=== PATIENT | female | born 1990 | race Caucasian/White ===

== ENCOUNTER 2025-09-09 09:43 | Inpatient (IN) | payer OTHER, SELFPAY ==
[2025-09-06 13:31] LABS: Hematocrit 37.0 % (34.9-44.5); Hemoglobin 12.9 g/dL (12.0-15.5); Platelet Count 173 10x3/uL (150-450)
[2025-09-06 14:03] LABS: Syphilis Antibody Index 0.04 S/CO (<1.00 Non-Reactive)
[2025-09-06 14:05] LABS: Hep B Surf Ag Non-Reactive S/CO (NonReactive)
[2025-09-09] MEDS ORDERED: hydrALAZINE 20 MG/ML VIAL SLOW IVP PRN ×2 (10:50→15:17)
[2025-09-09] MEDS ORDERED: Clindamycin/D5W 900 MG in Premix 1 BAG IVPB SCH (10:50)
[2025-09-09] MEDS ORDERED: Oxytocin 30 units/NS 500 ML 500 ML IV SCH ×2 (10:50→15:17)
[2025-09-09] MEDS ORDERED: Ondansetron PF 4 MG/2 ML Vial IVP PRN ×2 (10:50→15:17)
[2025-09-09] MEDS ORDERED: Famotidine/PF 20 mg/2ml Vial SLOW IVP PRN (10:50)
[2025-09-09] MEDS ORDERED: Bicitra 30 ML UDCUP PO PRN (10:50)
[2025-09-09 10:53] VITALS: BMI 29.2
[2025-09-09] MEDS ORDERED: Gentamicin Sulfate 120 MG in Premix 1 BAG IVPB SCH (11:00)
[2025-09-09] MEDS: PHENYLEPHRINE-NS 100 MCG/ML 10 ML SYRINGE ONE (14:36)
[2025-09-09] MEDS: Oxytocin 10 UNITS/ML VIAL ONE ×2 (14:36)
[2025-09-09] MEDS ORDERED: HYDROcodone/Acetaminophen 5/325 mg Tablet PO PRN ×2 (15:17)
[2025-09-09] MEDS ORDERED: Lanolin Ointment 7 GM TUBE TOP PRN (15:17)
[2025-09-09] MEDS: Ibuprofen 800 MG TAB PO SCH (17:11)
[2025-09-09] MEDS: Ketorolac Tromethamine 30 MG (1 mL) VIAL IVP PRN (18:01)
[2025-09-10] MEDS: Ferrous Sulfate 325 MG TAB PO SCH (02:59)
[2025-09-10 03:36] LABS: Hematocrit 32.7 % (34.9-44.5); Hemoglobin 11.2 g/dL (12.0-15.5); Mean Corpuscular Hemoglobin 32.0 pg (27.0-33.0); Mean Corpuscular Volume 93.4 fL (81.6-98.3); Platelet Count 139 10x3/uL (150-450); Red Blood Cell (RBC) Count 3.50 10x6/uL (3.90-5.03); White Blood Cell (WBC) Count 11.28 10x3/uL (3.5-10.5)
[2025-09-10] MEDS: HYDROcodone/Acetaminophen 5/325 mg Tablet PO PRN ×2 (15:02→20:49)
[2025-09-10] MEDS: Simethicone Chewable 80 MG TAB PO PRN (15:02)
[2025-09-10] MEDS: Ibuprofen 800 MG TAB PO SCH (22:03)
[2025-09-12 08:07] VITALS: BP 114/81; TEMP 97.9
== END 2025-09-12 12:35 | disposition home or self-care (01) | DRG 788 ==
LOC: CSHLD 10:08 → CSHPED 15:15
PROVIDERS: ADMIT Obstetrics & Gynecology; ATTEND Obstetrics & Gynecology
PROC: 10D00Z1 Extraction of Products of Conception, Low, Open Approach (ICD-10-PCS; principal; 2025-09-09)
DX: O34.211 Maternal care for low transverse scar from previous cesarean delivery (principal); Z37.0 Single live birth; Z3A.39 39 weeks gestation of pregnancy; O32.1XX0 Maternal care for breech presentation, not applicable or unspecified; Q96.4 Mosaicism, 45, X/other cell line(s) with abnormal sex chromosome; Z88.1 Allergy status to other antibiotic agents
CPT/HCPCS: 36415; 51702; 85014; 85018; 85027; 85049; 86780; 86850; 86900; 86901; 87340; C1889; J1885; J2274; J2550; J2590